=== PATIENT | female | born 1935 | race Two or more races ===

== ENCOUNTER 2018-02-02 17:15 | Emergency (ER) | payer MEDICARE ==
[~2018-02-02] VITALS: Ht 167.6 cm; Wt 76.2 kg
[~2018-02-02 17:15] MED LIST: TENORMIN 25MG T25 MG; Z.0.GLUCOPHAGE500 MG; Z.0.JANUVIA100 MG; Z.0.METHIMAZOLE10 MG; Z.0.NATEGLINIDE120 M
[2018-02-02] MEDS ORDERED: HYDROCODONE/APAP 5MG-325MG TAB PO ONE (18:30)
--- NOTE | 2018-02-02 18:42 | Diagnostic Imaging Report ---
SHOULDER LEFT COMPLETE - 3 views HISTORY: Pain. COMPARISON: None available. FINDINGS: Bones: No acute displaced fracture. Osseous alignment is within normal limits. Joints: Mild DJD of the glenohumeral joint. Soft tissues: The soft tissues appear unremarkable. IMPRESSION: Mild DJD of the glenohumeral joint. Signed by: Dr. Lexa Aiken M.D. on 02/02/2018 6:39 PM
== END 2018-02-02 19:36 | disposition home or self-care (01) ==
LOC: ER 17:15
DX: M25.512 Pain in left shoulder (principal); I10 Essential (primary) hypertension; E11.9 Type 2 diabetes mellitus without complications; E03.9 Hypothyroidism, unspecified
CPT/HCPCS: 99283

== ENCOUNTER 2019-06-07 21:52 | Emergency (ER) | payer MEDICARE ==
[~2019-06-07] VITALS: Ht 167.6 cm; Wt 73.0 kg
--- OUTSIDE RECORDS SUMMARY | 2019-06-07 21:57 | XMS REPORT ---
Author Author [facility] Address Unknown Phone Unavailable Care Team Providers Care Tectonophysicist Name Role Phone Russel NEGRETE Unavailable Unavailable Payers Payer Name Policy Type Policy Number Effective Date Expiration Date Problems This patient has no known problems. Allergies, Adverse Reactions, Alerts Allergy Name Allergy Type Status Severity Reaction(s) Onset Date Inactive Date Treating Clinician Comments No Known Allergies DA Active U 2019-02-13 00:00:00 Medications This patient has no known medications. Results Test Description Test Time Test Comments Text Results Atomic Results Result Comments GLUBED 2019-02-21 12:58:00 GLUBED (test code=GLUBED) 184 MG/DL 70-110 Performed by certified barrel rib matting machine operator at [facility] [id number] 06:43:00* Test Item Value Reference Range Comments GLUBED (test code=GLUBED) 135 MG/DL 70-110 Performed by certified barrel rib matting machine operator at [facility] [id number] 17:40:00* Test Item Value Reference Range Comments GLUBED (test code=GLUBED) 135 MG/DL 70-110 Performed by certified barrel rib matting machine operator at [facility] BASIC METABOLIC [id number] 15:18:00* Test Item Value Reference Range Comments SODIUM (test code=NA) 137 mEq/L 134-147 POTASSIUM (test code=K) 3.8 mEq/L 3.4-5.0 CHLORIDE (test code=CL) 100 mEq/L 100-108 CARBON DIOXIDE (test code=CO2) 32 mEq/L 21-33 ANION GAP (test code=GAP) 9 0-20 GLUCOSE (test code=GLU) 155 mg/dL 70-110 BLOOD UREA NITROGEN (test code=BUN) 13 mg/dL 7-18 GLOMERULAR FILTRATION RATE (test code=GFR) 68.8 70-80 Units of measure=ml/min/1.73 m2 CREATININE (test code=CREAT) 0.8 mg/dL 0.6-1.3 CALCIUM (test code=CA) 8.7 mg/dL 8.0-10.5 [id number] 13:02:00* Test Item Value Reference Range Comments GLUBED (test code=GLUBED) 321 MG/DL 70-110 Performed by certified barrel rib matting machine operator at [facility] CBC W/AUTO [id number] 07:52:00* Test Item Value Reference Range Comments WHITE BLOOD CELL (test code=WBC) 5.25 x10 3/uL 4.5-11.0 RED BLOOD CELL (test code=RBC) 3.77 x10 6/uL 3.54-5.02 HEMOGLOBIN (test code=HGB) 9.6 g/dL 11.0-15.0 HEMATOCRIT (test code=HCT) 30.6 % 33.0-45.0 MEAN CELL VOLUME (test code=MCV) 81.2 fL 81.0-99.0 MEAN CELL HGB (test code=MCH) 25.5 pg 27.0-33.0 MEAN CELL HGB CONCETRATION (test code=MCHC) 31.4 g/dL 33.0-37.0 RED CELL DISTRIBUTION WIDTH CV (test code=RDW) 14.8 % 11.5-14.5 RED CELL DISTRIBUTION WIDTH SD (test code=RDW-SD) 43.7 fL 37.0-54.0 PLATELET COUNT (test code=PLT) 274 x10 3/uL 150-400 MEAN PLATELET VOLUME (test code=MPV) 10.0 fL 7.0-9.0 NEUTROPHIL % (test code=NT%) 58.8 % 56.0-77.0 IMMATURE GRANULOCYTE % (test code=IG%) 0.4 % 0.0-2.0 LYMPHOCYTE % (test code=LY%) 28.0 % 14.0-32.0 MONOCYTE % (test code=MO%) 7.2 % 4.8-9.0 EOSINOPHIL % (test code=EO%) 5.0 % 0.3-3.7 BASOPHIL % (test code=BA%) 0.6 % 0.0-2.0 NUCLEATED RBC % (test code=NRBC%) 0.0 % 0-0 NEUTROPHIL # (test code=NT#) 3.09 x10 3/uL 2.0-7.6 IMMATURE GRANULOCYTE # (test code=IG#) 0.02 x10 3/uL 0.00-0.03 LYMPHOCYTE # (test code=LY#) 1.47 x10 3/uL 1.0-3.8 MONOCYTE # (test code=MO#) 0.38 x10 3/uL 0.1-0.8 EOSINOPHIL # (test code=EO#) 0.26 x10 3/uL 0.0-0.2 BASOPHIL # (test code=BA#) 0.03 x10 3/uL 0.0-0.2 NUCLEATED RBC # (test code=NRBC#) 0.00 x10 3/uL 0.0-0.1 MANUAL DIFF REQUIRED (test code=MDIFF) NO COMMENTS: Daily while on [id number] 06:09:00* Test Item Value Reference Range Comments GLUBED (test code=GLUBED) 145 MG/DL 70-110 Performed by certified barrel rib matting machine operator at [facility] [id number] 02:53:00* Test Item Value Reference Range Comments GLUBED (test code=GLUBED) 193 MG/DL 70-110 Performed by certified barrel rib matting machine operator at [facility] [id number] 18:50:00* Test Item Value Reference Range Comments GLUBED (test code=GLUBED) 104 MG/DL 70-110 Performed by certified barrel rib matting machine operator at [facility] [id number] 13:10:00* Test Item Value Reference Range Comments GLUBED (test code=GLUBED) 278 MG/DL 70-110 Performed by certified barrel rib matting machine operator at [facility] [id number] 06:24:00* Test Item Value Reference Range Comments GLUBED (test code=GLUBED) 139 MG/DL 70-110 Performed by certified barrel rib matting machine operator at [facility] [id number] 00:43:00* Test Item Value Reference Range Comments GLUBED (test code=GLUBED) 162 MG/DL 70-110 Performed by certified barrel rib matting machine operator at [facility] [id number] 18:30:00* Test Item Value Reference Range Comments GLUBED (test code=GLUBED) 131 MG/DL 70-110 Performed by certified barrel rib matting machine operator at [facility] [id number] 18:30:00* Test Item Value Reference Range Comments GLUBED (test code=GLUBED) 234 MG/DL 70-110 Performed by certified barrel rib matting machine operator at [facility] CBC W/AUTO [id number] 08:56:00* Test Item Value Reference Range Comments WHITE BLOOD CELL (test code=WBC) 6.98 x10 3/uL 4.5-11.0 RED BLOOD CELL (test code=RBC) 3.80 x10 6/uL 3.54-5.02 HEMOGLOBIN (test code=HGB) 9.6 g/dL 11.0-15.0 HEMATOCRIT (test code=HCT) 30.5 % 33.0-45.0 MEAN CELL VOLUME (test code=MCV) 80.3 fL 81.0-99.0 MEAN CELL HGB (test code=MCH) 25.3 pg 27.0-33.0 MEAN CELL HGB CONCETRATION (test code=MCHC) 31.5 g/dL 33.0-37.0 RED CELL DISTRIBUTION WIDTH CV (test code=RDW) 15.3 % 11.5-14.5 RED CELL DISTRIBUTION WIDTH SD (test code=RDW-SD) 44.2 fL 37.0-54.0 PLATELET COUNT (test code=PLT) 227 x10 3/uL 150-400 MEAN PLATELET VOLUME (test code=MPV) 10.9 fL 7.0-9.0 NEUTROPHIL % (test code=NT%) 76.4 % 56.0-77.0 IMMATURE GRANULOCYTE % (test code=IG%) 0.3 % 0.0-2.0 LYMPHOCYTE % (test code=LY%) 14.6 % 14.0-32.0 MONOCYTE % (test code=MO%) 6.7 % 4.8-9.0 EOSINOPHIL % (test code=EO%) 1.6 % 0.3-3.7 BASOPHIL % (test code=BA%) 0.4 % 0.0-2.0 NUCLEATED RBC % (test code=NRBC%) 0.0 % 0-0 NEUTROPHIL # (test code=NT#) 5.33 x10 3/uL 2.0-7.6 IMMATURE GRANULOCYTE # (test code=IG#) 0.02 x10 3/uL 0.00-0.03 LYMPHOCYTE # (test code=LY#) 1.02 x10 3/uL 1.0-3.8 MONOCYTE # (test code=MO#) 0.47 x10 3/uL 0.1-0.8 EOSINOPHIL # (test code=EO#) 0.11 x10 3/uL 0.0-0.2 BASOPHIL # (test code=BA#) 0.03 x10 3/uL 0.0-0.2 NUCLEATED RBC # (test code=NRBC#) 0.00 x10 3/uL 0.0-0.1 MANUAL DIFF REQUIRED (test code=MDIFF) NO COMMENTS: Daily while on HeparinCOMPREHENSIVE METABOLIC [id number] 08:25:00 * Test Item Value Reference Range Comments SODIUM (test code=NA) 138 mEq/L 134-147 POTASSIUM (test code=K) 3.5 mEq/L 3.4-5.0 CHLORIDE (test code=CL) 106 mEq/L 100-108 CARBON DIOXIDE (test code=CO2) 25 mEq/L 21-33 ANION GAP (test code=GAP) 11 0-20 GLUCOSE (test code=GLU) 126 mg/dL 70-110 BLOOD UREA NITROGEN (test code=BUN) 16 mg/dL 7-18 GLOMERULAR FILTRATION RATE (test code=GFR) 80.3 70-80 Units of measure=ml/min/1.73 m2 CREATININE (test code=CREAT) 0.7 mg/dL 0.6-1.3 TOTAL PROTEIN (test code=PROT) 6.0 g/dL 6.4-8.2 ALBUMIN (test code=ALB) 2.50 g/dL 3.4-5.0 CALCIUM (test code=CA) 8.7 mg/dL 8.0-10.5 BILIRUBIN TOTAL (test code=BILT) 0.7 MG/DL <1.5 SGOT/AST (test code=AST) 10 IUnit/L 15-37 SGPT/ALT (test code=ALT) 17 IUnit/L 15-65 ALKALINE PHOSPHATASE TOTAL (test code=ALKP) 66 IUnit/L 20-125 [id number] 08:25:00* Test Item Value Reference Range Comments PHOSPHOROUS (test code=PHOS) 3.1 MG/DL 2.5-4.9 [id number] 08:25:00* Test Item Value Reference Range Comments MAGNESIUM (test code=MAG) 1.90 mg/dL 1.8-2.4 [id number] 05:54:00* Test Item Value Reference Range Comments GLUBED (test code=GLUBED) 141 MG/DL 70-110 Performed by certified barrel rib matting machine operator at [facility] [id number] 02:58:00* Test Item Value Reference Range Comments GLUBED (test code=GLUBED) 106 MG/DL 70-110 Performed by certified barrel rib matting machine operator at [facility] [id number] 18:49:00* Test Item Value Reference Range Comments GLUBED (test code=GLUBED) 202 MG/DL 70-110 Performed by certified barrel rib matting machine operator at [facility] BASIC METABOLIC [id number] 17:13:00* Test Item Value Reference Range Comments SODIUM (test code=NA) 136 mEq/L 134-147 POTASSIUM (test code=K) 3.4 mEq/L 3.4-5.0 CHLORIDE (test code=CL) 104 mEq/L 100-108 CARBON DIOXIDE (test code=CO2) 25 mEq/L 21-33 ANION GAP (test code=GAP) 10 0-20 GLUCOSE (test code=GLU) 223 mg/dL 70-110 BLOOD UREA NITROGEN (test code=BUN) 20 mg/dL 7-18 GLOMERULAR FILTRATION RATE (test code=GFR) 53.2 70-80 Units of measure=ml/min/1.73 m2 CREATININE (test code=CREAT) 1.0 mg/dL 0.6-1.3 CALCIUM (test code=CA) 8.7 mg/dL 8.0-10.5 [id number] 17:13:00* Test Item Value Reference Range Comments PHOSPHOROUS (test code=PHOS) 3.1 MG/DL 2.5-4.9 [id number] 17:13:00* Test Item Value Reference Range Comments MAGNESIUM (test code=MAG) 1.90 mg/dL 1.8-2.4 BASIC METABOLIC [id number] 17:12:00* Test Item Value Reference Range Comments SODIUM (test code=NA) 136 mEq/L 134-147 POTASSIUM (test code=K) 3.4 mEq/L 3.4-5.0 CHLORIDE (test code=CL) 104 mEq/L 100-108 CARBON DIOXIDE (test code=CO2) 25 mEq/L 21-33 ANION GAP (test code=GAP) 10 0-20 GLUCOSE (test code=GLU) 223 mg/dL 70-110 BLOOD UREA NITROGEN (test code=BUN) 20 mg/dL 7-18 GLOMERULAR FILTRATION RATE (test code=GFR) 70-80 CREATININE (test code=CREAT) mg/dL 0.6-1.3 CALCIUM (test code=CA) 8.7 mg/dL 8.0-10.5 [id number] 17:12:00* Test Item Value Reference Range Comments PHOSPHOROUS (test code=PHOS) MG/DL 2.5-4.9 [id number] 17:12:00* Test Item Value Reference Range Comments MAGNESIUM (test code=MAG) 1.90 mg/dL 1.8-2.4 [id number] 17:06:00* Test Item Value Reference Range Comments GLUBED (test code=GLUBED) 140 MG/DL 70-110 Performed by certified barrel rib matting machine operator at [facility] [id number] 16:34:00* Test Item Value Reference Range Comments GLUBED (test code=GLUBED) 140 MG/DL 70-110 Performed by certified barrel rib matting machine operator at [facility] [id number] 13:13:00* Test Item Value Reference Range Comments GLUBED (test code=GLUBED) 140 MG/DL 70-110 Performed by certified barrel rib matting machine operator at [facility] COMPREHENSIVE METABOLIC [id number] 07:35:00* Test Item Value Reference Range Comments SODIUM (test code=NA) 138 mEq/L 134-147 POTASSIUM (test code=K) 3.5 mEq/L 3.4-5.0 CHLORIDE (test code=CL) 106 mEq/L 100-108 CARBON DIOXIDE (test code=CO2) 25 mEq/L 21-33 ANION GAP (test code=GAP) 11 0-20 GLUCOSE (test code=GLU) 186 mg/dL 70-110 BLOOD UREA NITROGEN (test code=BUN) 20 mg/dL 7-18 GLOMERULAR FILTRATION RATE (test code=GFR) 60.1 70-80 Units of measure=ml/min/1.73 m2 CREATININE (test code=CREAT) 0.9 mg/dL 0.6-1.3 TOTAL PROTEIN (test code=PROT) 5.6 g/dL 6.4-8.2 ALBUMIN (test code=ALB) 2.30 g/dL 3.4-5.0 CALCIUM (test code=CA) 8.2 mg/dL 8.0-10.5 BILIRUBIN TOTAL (test code=BILT) 0.4 MG/DL <1.5 SGOT/AST (test code=AST) 6 IUnit/L 15-37 SGPT/ALT (test code=ALT) 15 IUnit/L 15-65 ALKALINE PHOSPHATASE TOTAL (test code=ALKP) 60 IUnit/L 20-125 [id number] 07:35:00* Test Item Value Reference Range Comments PHOSPHOROUS (test code=PHOS) 3.0 MG/DL 2.5-4.9 [id number] 07:35:00* Test Item Value Reference Range Comments MAGNESIUM (test code=MAG) 2.10 mg/dL 1.8-2.4 T4 [id number] 07:35:00* Test Item Value Reference Range Comments T4 FREE (test code=T4F) 1.6 ng/dL 0.77-1.61 THYROID STIMULATING [id number] 07:35:00* Test Item Value Reference Range Comments THYROID STIMULATING HORMONE (test code=TSH) < 0.01 0.42-5.47 Results in raysa- International Units/mL COMPREHENSIVE METABOLIC [id number] 07:13:00* Test Item Value Reference Range Comments SODIUM (test code=NA) 138 mEq/L 134-147 POTASSIUM (test code=K) 3.5 mEq/L 3.4-5.0 CHLORIDE (test code=CL) 106 mEq/L 100-108 CARBON DIOXIDE (test code=CO2) 25 mEq/L 21-33 ANION GAP (test code=GAP) 11 0-20 GLUCOSE (test code=GLU) 186 mg/dL 70-110 BLOOD UREA NITROGEN (test code=BUN) 20 mg/dL 7-18 GLOMERULAR FILTRATION RATE (test code=GFR) 60.1 70-80 Units of measure=ml/min/1.73 m2 CREATININE (test code=CREAT) 0.9 mg/dL 0.6-1.3 TOTAL PROTEIN (test code=PROT) 5.6 g/dL 6.4-8.2 ALBUMIN (test code=ALB) 2.30 g/dL 3.4-5.0 CALCIUM (test code=CA) 8.2 mg/dL 8.0-10.5 BILIRUBIN TOTAL (test code=BILT) 0.4 MG/DL <1.5 SGOT/AST (test code=AST) 6 IUnit/L 15-37 SGPT/ALT (test code=ALT) 15 IUnit/L 15-65 ALKALINE PHOSPHATASE TOTAL (test code=ALKP) 60 IUnit/L 20-125 [id number] 07:13:00* Test Item Value Reference Range Comments PHOSPHOROUS (test code=PHOS) 3.0 MG/DL 2.5-4.9 [id number] 07:13:00* Test Item Value Reference Range Comments MAGNESIUM (test code=MAG) 2.10 mg/dL 1.8-2.4 T4 [id number] 07:13:00* Test Item Value Reference Range Comments T4 FREE (test code=T4F) 1.6 ng/dL 0.77-1.61 THYROID STIMULATING [id number] 07:13:00* Test Item Value Reference Range Comments THYROID STIMULATING HORMONE (test code=TSH) 0.42-5.47 [id number] 07:11:00* Test Item Value Reference Range Comments GLUBED (test code=GLUBED) 174 MG/DL 70-110 Performed by certified barrel rib matting machine operator at [facility] COMPREHENSIVE METABOLIC [id number] 07:05:00* Test Item Value Reference Range Comments SODIUM (test code=NA) 138 mEq/L 134-147 POTASSIUM (test code=K) 3.5 mEq/L 3.4-5.0 CHLORIDE (test code=CL) 106 mEq/L 100-108 CARBON DIOXIDE (test code=CO2) 25 mEq/L 21-33 ANION GAP (test code=GAP) 11 0-20 GLUCOSE (test code=GLU) 186 mg/dL 70-110 BLOOD UREA NITROGEN (test code=BUN) 20 mg/dL 7-18 GLOMERULAR FILTRATION RATE (test code=GFR) 70-80 CREATININE (test code=CREAT) mg/dL 0.6-1.3 TOTAL PROTEIN (test code=PROT) g/dL 6.4-8.2 ALBUMIN (test code=ALB) g/dL 3.4-5.0 CALCIUM (test code=CA) 8.2 mg/dL 8.0-10.5 BILIRUBIN TOTAL (test code=BILT) MG/DL <1.5 SGOT/AST (test code=AST) IUnit/L 15-37 SGPT/ALT (test code=ALT) IUnit/L 15-65 ALKALINE PHOSPHATASE TOTAL (test code=ALKP) IUnit/L 20-125 [id number] 07:05:00* Test Item Value Reference Range Comments PHOSPHOROUS (test code=PHOS) MG/DL 2.5-4.9 [id number] 07:05:00* Test Item Value Reference Range Comments MAGNESIUM (test code=MAG) mg/dL 1.8-2.4 T4 [id number] 07:05:00* Test Item Value Reference Range Comments T4 FREE (test code=T4F) ng/dL 0.77-1.61 THYROID STIMULATING [id number] 07:05:00* Test Item Value Reference Range Comments THYROID STIMULATING HORMONE (test code=TSH) 0.42-5.47 CBC W/AUTO [id number] 06:39:00* Test Item Value Reference Range Comments WHITE BLOOD CELL (test code=WBC) 7.11 x10 3/uL 4.5-11.0 RED BLOOD CELL (test code=RBC) 3.47 x10 6/uL 3.54-5.02 HEMOGLOBIN (test code=HGB) 9.0 g/dL 11.0-15.0 HEMATOCRIT (test code=HCT) 27.6 % 33.0-45.0 MEAN CELL VOLUME (test code=MCV) 79.5 fL 81.0-99.0 MEAN CELL HGB (test code=MCH) 25.9 pg 27.0-33.0 MEAN CELL HGB CONCETRATION (test code=MCHC) 32.6 g/dL 33.0-37.0 RED CELL DISTRIBUTION WIDTH CV (test code=RDW) 15.4 % 11.5-14.5 RED CELL DISTRIBUTION WIDTH SD (test code=RDW-SD) 44.9 fL 37.0-54.0 PLATELET COUNT (test code=PLT) 188 x10 3/uL 150-400 MEAN PLATELET VOLUME (test code=MPV) 11.1 fL 7.0-9.0 NEUTROPHIL % (test code=NT%) 84.9 % 56.0-77.0 IMMATURE GRANULOCYTE % (test code=IG%) 0.7 % 0.0-2.0 LYMPHOCYTE % (test code=LY%) 8.2 % 14.0-32.0 MONOCYTE % (test code=MO%) 5.8 % 4.8-9.0 EOSINOPHIL % (test code=EO%) 0.1 % 0.3-3.7 BASOPHIL % (test code=BA%) 0.3 % 0.0-2.0 NUCLEATED RBC % (test code=NRBC%) 0.0 % 0-0 NEUTROPHIL # (test code=NT#) 6.04 x10 3/uL 2.0-7.6 IMMATURE GRANULOCYTE # (test code=IG#) 0.05 x10 3/uL 0.00-0.03 LYMPHOCYTE # (test code=LY#) 0.58 x10 3/uL 1.0-3.8 MONOCYTE # (test code=MO#) 0.41 x10 3/uL 0.1-0.8 EOSINOPHIL # (test code=EO#) 0.01 x10 3/uL 0.0-0.2 BASOPHIL # (test code=BA#) 0.02 x10 3/uL 0.0-0.2 NUCLEATED RBC # (test code=NRBC#) 0.00 x10 3/uL 0.0-0.1 MANUAL DIFF REQUIRED (test code=MDIFF) NO COMMENTS: Daily while on HeparinARTERIAL BLOOD [id number] 02:53:00* Test Item Value Reference Range Comments ARTERIAL BLOOD GAS PH (test code=PHA) 7.449 7.35-7.45 ARTERIAL BLOOD GAS PCO2 (test code=PCO2A) 29.6 mmHg 35-45 ARTERIAL BLOOD GAS PO2 (test code=PO2A) 86 mmHg 80-100 BICARBONATE TOTAL HCO3 (test code=HCO3) 20.5 mmol/L 22.0-26.0 BASE EXCESS (test code=MARY) -4.0 mmol/L -4-4 ABG O2 SATURATION (test code=SATA) 97 % 90-100 ABG DELIVERY (test code=NATIVIDAD) Cannula ABG TEMPERATURE (test code=TEMPA) 98.7 F ABG SITE (test code=SITEA) Art line TCO2 ARTERIAL (test code=TCO2A) 21 [id number] 00:13:00* Test Item Value Reference Range Comments GLUBED (test code=GLUBED) 168 MG/DL 70-110 Performed by certified barrel rib matting machine operator at [facility] [id number] 18:08:00* Test Item Value Reference Range Comments GLUBED (test code=GLUBED) 143 MG/DL 70-110 Performed by certified barrel rib matting machine operator at [facility] [id number] 11:16:00* Test Item Value Reference Range Comments GLUBED (test code=GLUBED) 174 MG/DL 70-110 Performed by certified barrel rib matting machine operator at [facility] - XR CHEST 1 [id number] 08:32:00 FAX: Hieu Poole MD [place]: St: ADM FAX: Ai Berger MD [phone] FAX: Irma Smith [phone] Name: SUMMER RUBI [facility] : 1935 Age/S: 83/F [address] [place] [address] Unit #: [id number] Loc: G.M324 [place] [address] Phys: Hieu Poole MD Acct: [id number] Dis Date: Status: ADM IN PH ONE #: [phone] Exam Date: 02/16/2019 0548 FAX #: [phone] Reason: pulmonary edema EXAMS: CPT CODE: [id number] XR CHEST 1 V [id number] CHEST 1 VIEW: 02/16/2019 COMPARISON: February 15, 2019 CLINICAL HI STORY: pulmonary edema FINDINGS: Cardiomediastinal silhouette is s table in size. Endotracheal tube and NG tube are relatively unchanged. There is persistent pulmonary edema pattern with bilateral infiltrat es and bilateral pleural effusions. Findings appear stable. No evidence of pneumothorax. IMPRESSION: Per sistent pulmonary edema, without significant change. at 0832 Report ed and signed by: Darinel Acevedo M.D. CC: Hieu Poole MD; Aly Ryan; Irma Davis MD Technologist: RT Nik(R) Trnscrd Date/Time/By: 02/16/2019 (0832) : By: [email or web address] Orig Print D/T: S: 02/16/2019 (0847) PAGE 1 Signed Report [id number] 06:48:00* Test Item Value Reference Range Comments GLUBED (test code=GLUBED) 131 MG/DL 70-110 Performed by certified barrel rib matting machine operator at [facility] THROMBOPLASTIN TIME [id number] 05:44:00* Test Item Value Reference Range Comments THROMBOPLASTIN TIME PARTIAL (test code=PTT) 43.7 Seconds 25.0-39.5 Therapeutic Range: 50.4 - 88.3 Seconds Effective 06/14/2018 COMPREHENSIVE METABOLIC [id number] 05:38:00* Test Item Value Reference Range Comments SODIUM (test code=NA) 136 mEq/L 134-147 POTASSIUM (test code=K) 3.3 mEq/L 3.4-5.0 CHLORIDE (test code=CL) 106 mEq/L 100-108 CARBON DIOXIDE (test code=CO2) 22 mEq/L 21-33 ANION GAP (test code=GAP) 11 0-20 GLUCOSE (test code=GLU) 118 mg/dL 70-110 BLOOD UREA NITROGEN (test code=BUN) 17 mg/dL 7-18 GLOMERULAR FILTRATION RATE (test code=GFR) 60.1 70-80 Units of measure=ml/min/1.73 m2 CREATININE (test code=CREAT) 0.9 mg/dL 0.6-1.3 TOTAL PROTEIN (test code=PROT) 5.4 g/dL 6.4-8.2 ALBUMIN (test code=ALB) 2.50 g/dL 3.4-5.0 CALCIUM (test code=CA) 8.0 mg/dL 8.0-10.5 BILIRUBIN TOTAL (test code=BILT) 0.3 MG/DL <1.5 SGOT/AST (test code=AST) 5 IUnit/L 15-37 SGPT/ALT (test code=ALT) 21 IUnit/L 15-65 ALKALINE PHOSPHATASE TOTAL (test code=ALKP) 60 IUnit/L 20-125 [id number] 05:38:00* Test Item Value Reference Range Comments PHOSPHOROUS (test code=PHOS) 3.1 MG/DL 2.5-4.9 [id number] 05:38:00* Test Item Value Reference Range Comments MAGNESIUM (test code=MAG) 2.00 mg/dL 1.8-2.4 CALCIUM [id number] 05:27:00* Test Item Value Reference Range Comments CALCIUM IONIZED (test code=HEBERT) 1.13 MMOL/L 1.12-1.32 CBC W/AUTO [id number] 05:26:00* Test Item Value Reference Range Comments WHITE BLOOD CELL (test code=WBC) 8.28 x10 3/uL 4.5-11.0 RED BLOOD CELL (test code=RBC) 3.60 x10 6/uL 3.54-5.02 HEMOGLOBIN (test code=HGB) 9.2 g/dL 11.0-15.0 HEMATOCRIT (test code=HCT) 28.4 % 33.0-45.0 MEAN CELL VOLUME (test code=MCV) 78.9 fL 81.0-99.0 MEAN CELL HGB (test code=MCH) 25.6 pg 27.0-33.0 MEAN CELL HGB CONCETRATION (test code=MCHC) 32.4 g/dL 33.0-37.0 RED CELL DISTRIBUTION WIDTH CV (test code=RDW) 15.3 % 11.5-14.5 RED CELL DISTRIBUTION WIDTH SD (test code=RDW-SD) 43.8 fL 37.0-54.0 PLATELET COUNT (test code=PLT) 183 x10 3/uL 150-400 MEAN PLATELET VOLUME (test code=MPV) 10.9 fL 7.0-9.0 NEUTROPHIL % (test code=NT%) 81.2 % 56.0-77.0 IMMATURE GRANULOCYTE % (test code=IG%) 0.5 % 0.0-2.0 LYMPHOCYTE % (test code=LY%) 11.0 % 14.0-32.0 MONOCYTE % (test code=MO%) 7.2 % 4.8-9.0 EOSINOPHIL % (test code=EO%) 0.0 % 0.3-3.7 BASOPHIL % (test code=BA%) 0.1 % 0.0-2.0 NUCLEATED RBC % (test code=NRBC%) 0.0 % 0-0 NEUTROPHIL # (test code=NT#) 6.72 x10 3/uL 2.0-7.6 IMMATURE GRANULOCYTE # (test code=IG#) 0.04 x10 3/uL 0.00-0.03 LYMPHOCYTE # (test code=LY#) 0.91 x10 3/uL 1.0-3.8 MONOCYTE # (test code=MO#) 0.60 x10 3/uL 0.1-0.8 EOSINOPHIL # (test code=EO#) 0.00 x10 3/uL 0.0-0.2 BASOPHIL # (test code=BA#) 0.01 x10 3/uL 0.0-0.2 NUCLEATED RBC # (test code=NRBC#) 0.00 x10 3/uL 0.0-0.1 MANUAL DIFF REQUIRED (test code=MDIFF) NO COMMENTS: Daily while on [id number] 04:42:00* Test Item Value Reference Range Comments GLUBED (test code=GLUBED) 112 MG/DL 70-110 Performed by certified barrel rib matting machine operator at [facility] ARTERIAL BLOOD [id number] 04:16:00* Test Item Value Reference Range Comments ARTERIAL BLOOD GAS PH (test code=PHA) 7.445 7.35-7.45 ARTERIAL BLOOD GAS PCO2 (test code=PCO2A) 27.9 mmHg 35-45 ARTERIAL BLOOD GAS PO2 (test code=PO2A) 66 mmHg 80-100 BICARBONATE TOTAL HCO3 (test code=HCO3) 19.1 mmol/L 22.0-26.0 BASE EXCESS (test code=MARY) -5.0 mmol/L -4-4 ABG O2 SATURATION (test code=SATA) 94 % 90-100 ABG DELIVERY (test code=NATIVIDAD) Vent Performed by certified barrel rib matting machine operator at [facility] ABG TEMPERATURE (test code=TEMPA) 99.29 F ABG SITE (test code=SITEA) Art line TCO2 ARTERIAL (test code=TCO2A) 20 [id number] 03:23:00* Test Item Value Reference Range Comments GLUBED (test code=GLUBED) 84 MG/DL 70-110 Performed by certified barrel rib matting machine operator at [facility] [id number] 01:05:00* Test Item Value Reference Range Comments GLUBED (test code=GLUBED) 116 MG/DL 70-110 Performed by certified barrel rib matting machine operator at [facility] [id number] 23:02:00* Test Item Value Reference Range Comments GLUBED (test code=GLUBED) 141 MG/DL 70-110 Performed by certified barrel rib matting machine operator at [facility] THROMBOPLASTIN TIME [id number] 22:41:00* Test Item Value Reference Range Comments THROMBOPLASTIN TIME PARTIAL (test code=PTT) 58.7 Seconds 25.0-39.5 Therapeutic Range: 50.4 - 88.3 Seconds Effective 06/14/2018 [id number] 20:49:00* Test Item Value Reference Range Comments GLUBED (test code=GLUBED) 138 MG/DL 70-110 Performed by certified barrel rib matting machine operator at [facility] [id number] 18:41:00* Test Item Value Reference Range Comments GLUBED (test code=GLUBED) 152 MG/DL 70-110 Performed by certified barrel rib matting machine operator at [facility] THROMBOPLASTIN TIME [id number] 16:50:00* Test Item Value Reference Range Comments THROMBOPLASTIN TIME PARTIAL (test code=PTT) 72.9 Seconds 25.0-39.5 Therapeutic Range: 50.4 - 88.3 Seconds Effective 06/14/2018 [id number] 15:40:00* Test Item Value Reference Range Comments GLUBED (test code=GLUBED) 132 MG/DL 70-110 Performed by certified barrel rib matting machine operator at [facility] [id number] 13:14:00* Test Item Value Reference Range Comments GLUBED (test code=GLUBED) 156 MG/DL 70-110 Performed by certified barrel rib matting machine operator at [facility] [id number] 10:48:00* Test Item Value Reference Range Comments GLUBED (test code=GLUBED) 149 MG/DL 70-110 Performed by certified barrel rib matting machine operator at [facility] [id number] 08:33:00* Test Item Value Reference Range Comments GLUBED (test code=GLUBED) 157 MG/DL 70-110 Performed by certified barrel rib matting machine operator at [facility] - XR CHEST 1 [id number] 08:21:00 FAX: Hieu Poole MD [place]: St: ADM FAX: Ai Berger MD [phone] FAX: Irma Smith [phone] Name: SUMMER RUBI [facility] : 1935 Age/S: 83/F [address] [place] [address] Unit #: [id number] Loc: G.M324 [place] [address] Phys: Hieu Poole MD Acct: [id number] Dis Date: Status: ADM IN PH ONE #: [phone] Exam Date: 02/15/2019 0544 FAX #: [phone] Reason: pulmonary edema, ETT placement EXAMS: CPT CODE: [id number] XR CHEST 1 V 49095 Clinical Indic ation: Pulmonary edema, endotracheal tube placement. Comparison: 9. Impression: Chest, single view. Stable position of endotrach eal tube. New NG tube with tip and sidehole coiled over the expected lo cation of the stomach. Cardiomegaly with retrocardiac opacification concerning for pneumonia. Small to moderate layering right pleural effusion with overlying atelectatic change. Small left pleural effusio n. No pneumothorax. SL: [id number] at 0821 Reported and signed by: Chen Del Rosario M.D. CC: Hieu Poole MD; Ai Motta; Irma Davis MD Technologist: RT Nik(Edin) Trnscrd Date/Time/By: 02/15/2019 (820) : By: [email or web address] Orig Print D/T: S: 02/15/2019 (8008) PAGE 1 Signed Report THROMBOPLASTIN TIME [id number] 05:50:00* Test Item Value Reference Range Comments THROMBOPLASTIN TIME PARTIAL (test code=PTT) 36.7 Seconds 25.0-39.5 Therapeutic Range: 50.4 - 88.3 Seconds Effective 06/14/2018 [id number] 05:46:00* Test Item Value Reference Range Comments GLUBED (test code=GLUBED) 132 MG/DL 70-110 Performed by certified barrel rib matting machine operator at [facility] COMPREHENSIVE METABOLIC [id number] 05:41:00* Test Item Value Reference Range Comments SODIUM (test code=NA) 137 mEq/L 134-147 POTASSIUM (test code=K) 3.2 mEq/L 3.4-5.0 CHLORIDE (test code=CL) 105 mEq/L 100-108 CARBON DIOXIDE (test code=CO2) 24 mEq/L 21-33 ANION GAP (test code=GAP) 11 0-20 GLUCOSE (test code=GLU) 116 mg/dL 70-110 BLOOD UREA NITROGEN (test code=BUN) 15 mg/dL 7-18 GLOMERULAR FILTRATION RATE (test code=GFR) 53.2 70-80 Units of measure=ml/min/1.73 m2 CREATININE (test code=CREAT) 1.0 mg/dL 0.6-1.3 TOTAL PROTEIN (test code=PROT) 5.4 g/dL 6.4-8.2 ALBUMIN (test code=ALB) 2.60 g/dL 3.4-5.0 CALCIUM (test code=CA) 7.8 mg/dL 8.0-10.5 BILIRUBIN TOTAL (test code=BILT) 0.2 MG/DL <1.5 SGOT/AST (test code=AST) 9 IUnit/L 15-37 SGPT/ALT (test code=ALT) 28 IUnit/L 15-65 ALKALINE PHOSPHATASE TOTAL (test code=ALKP) 65 IUnit/L 20-125 [id number] 05:41:00* Test Item Value Reference Range Comments PHOSPHOROUS (test code=PHOS) 2.9 MG/DL 2.5-4.9 [id number] 05:41:00* Test Item Value Reference Range Comments MAGNESIUM (test code=MAG) 1.50 mg/dL 1.8-2.4 CALCIUM [id number] 05:41:00* Test Item Value Reference Range Comments CALCIUM IONIZED (test code=HEBERT) 1.12 MMOL/L 1.12-1.32 COMPREHENSIVE METABOLIC [id number] 05:37:00* Test Item Value Reference Range Comments SODIUM (test code=NA) 137 mEq/L 134-147 POTASSIUM (test code=K) 3.2 mEq/L 3.4-5.0 CHLORIDE (test code=CL) 105 mEq/L 100-108 CARBON DIOXIDE (test code=CO2) 24 mEq/L 21-33 ANION GAP (test code=GAP) 11 0-20 GLUCOSE (test code=GLU) 116 mg/dL 70-110 BLOOD UREA NITROGEN (test code=BUN) 15 mg/dL 7-18 GLOMERULAR FILTRATION RATE (test code=GFR) 70-80 CREATININE (test code=CREAT) mg/dL 0.6-1.3 TOTAL PROTEIN (test code=PROT) g/dL 6.4-8.2 ALBUMIN (test code=ALB) g/dL 3.4-5.0 CALCIUM (test code=CA) 7.8 mg/dL 8.0-10.5 BILIRUBIN TOTAL (test code=BILT) MG/DL <1.5 SGOT/AST (test code=AST) IUnit/L 15-37 SGPT/ALT (test code=ALT) IUnit/L 15-65 ALKALINE PHOSPHATASE TOTAL (test code=ALKP) IUnit/L 20-125 [id number] 05:37:00* Test Item Value Reference Range Comments PHOSPHOROUS (test code=PHOS) MG/DL 2.5-4.9 [id number] 05:37:00* Test Item Value Reference Range Comments MAGNESIUM (test code=MAG) mg/dL 1.8-2.4 CALCIUM [id number] 05:37:00* Test Item Value Reference Range Comments CALCIUM IONIZED (test code=HEBERT) 1.12 MMOL/L 1.12-1.32 COMPREHENSIVE METABOLIC [id number] 05:28:00* Test Item Value Reference Range Comments SODIUM (test code=NA) mEq/L 134-147 POTASSIUM (test code=K) mEq/L 3.4-5.0 CHLORIDE (test code=CL) mEq/L 100-108 CARBON DIOXIDE (test code=CO2) mEq/L 21-33 ANION GAP (test code=GAP) 0-20 GLUCOSE (test code=GLU) mg/dL 70-110 BLOOD UREA NITROGEN (test code=BUN) mg/dL 7-18 GLOMERULAR FILTRATION RATE (test code=GFR) 70-80 CREATININE (test code=CREAT) mg/dL 0.6-1.3 TOTAL PROTEIN (test code=PROT) g/dL 6.4-8.2 ALBUMIN (test code=ALB) g/dL 3.4-5.0 CALCIUM (test code=CA) mg/dL 8.0-10.5 BILIRUBIN TOTAL (test code=BILT) MG/DL <1.5 SGOT/AST (test code=AST) IUnit/L 15-37 SGPT/ALT (test code=ALT) IUnit/L 15-65 ALKALINE PHOSPHATASE TOTAL (test code=ALKP) IUnit/L 20-125 [id number] 05:28:00* Test Item Value Reference Range Comments PHOSPHOROUS (test code=PHOS) MG/DL 2.5-4.9 [id number] 05:28:00* Test Item Value Reference Range Comments MAGNESIUM (test code=MAG) mg/dL 1.8-2.4 CALCIUM [id number] 05:28:00* Test Item Value Reference Range Comments CALCIUM IONIZED (test code=HEBERT) 1.12 MMOL/L 1.12-1.32 CBC W/AUTO [id number] 05:20:00* Test Item Value Reference Range Comments WHITE BLOOD CELL (test code=WBC) 8.29 x10 3/uL 4.5-11.0 RED BLOOD CELL (test code=RBC) 3.82 x10 6/uL 3.54-5.02 HEMOGLOBIN (test code=HGB) 9.7 g/dL 11.0-15.0 HEMATOCRIT (test code=HCT) 30.1 % 33.0-45.0 MEAN CELL VOLUME (test code=MCV) 78.8 fL 81.0-99.0 MEAN CELL HGB (test code=MCH) 25.4 pg 27.0-33.0 MEAN CELL HGB CONCETRATION (test code=MCHC) 32.2 g/dL 33.0-37.0 RED CELL DISTRIBUTION WIDTH CV (test code=RDW) 14.6 % 11.5-14.5 RED CELL DISTRIBUTION WIDTH SD (test code=RDW-SD) 42.0 fL 37.0-54.0 PLATELET COUNT (test code=PLT) 195 x10 3/uL 150-400 MEAN PLATELET VOLUME (test code=MPV) 11.1 fL 7.0-9.0 NEUTROPHIL % (test code=NT%) 77.5 % 56.0-77.0 IMMATURE GRANULOCYTE % (test code=IG%) 0.4 % 0.0-2.0 LYMPHOCYTE % (test code=LY%) 13.4 % 14.0-32.0 MONOCYTE % (test code=MO%) 8.2 % 4.8-9.0 EOSINOPHIL % (test code=EO%) 0.4 % 0.3-3.7 BASOPHIL % (test code=BA%) 0.1 % 0.0-2.0 NUCLEATED RBC % (test code=NRBC%) 0.0 % 0-0 NEUTROPHIL # (test code=NT#) 6.43 x10 3/uL 2.0-7.6 IMMATURE GRANULOCYTE # (test code=IG#) 0.03 x10 3/uL 0.00-0.03 LYMPHOCYTE # (test code=LY#) 1.11 x10 3/uL 1.0-3.8 MONOCYTE # (test code=MO#) 0.68 x10 3/uL 0.1-0.8 EOSINOPHIL # (test code=EO#) 0.03 x10 3/uL 0.0-0.2 BASOPHIL # (test code=BA#) 0.01 x10 3/uL 0.0-0.2 NUCLEATED RBC # (test code=NRBC#) 0.00 x10 3/uL 0.0-0.1 MANUAL DIFF REQUIRED (test code=MDIFF) NO [id number] 04:53:00* Test Item Value Reference Range Comments GLUBED (test code=GLUBED) 135 MG/DL 70-110 Performed by certified barrel rib matting machine operator at [facility] [id number] 04:53:00* Test Item Value Reference Range Comments GLUBED (test code=GLUBED) 66 MG/DL 70-110 Performed by certified barrel rib matting machine operator at [facility] [id number] 03:47:00* Test Item Value Reference Range Comments GLUBED (test code=GLUBED) 131 MG/DL 70-110 Performed by certified barrel rib matting machine operator at [facility] [id number] 01:24:00* Test Item Value Reference Range Comments GLUBED (test code=GLUBED) 130 MG/DL 70-110 Performed by certified barrel rib matting machine operator at [facility] [id number] 00:16:00* Test Item Value Reference Range Comments GLUBED (test code=GLUBED) 219 MG/DL 70-110 Performed by certified barrel rib matting machine operator at [facility] [id number] 00:16:00* Test Item Value Reference Range Comments GLUBED (test code=GLUBED) 303 MG/DL 70-110 Performed by certified barrel rib matting machine operator at [facility] [id number] 00:16:00* Test Item Value Reference Range Comments GLUBED (test code=GLUBED) 321 MG/DL 70-110 Performed by certified barrel rib matting machine operator at [facility] [id number] 00:16:00* Test Item Value Reference Range Comments GLUBED (test code=GLUBED) 355 MG/DL 70-110 Performed by certified barrel rib matting machine operator at [facility] [id number] 00:16:00* Test Item Value Reference Range Comments GLUBED (test code=GLUBED) 381 MG/DL 70-110 Performed by certified barrel rib matting machine operator at [facility] [id number] 00:16:00* Test Item Value Reference Range Comments GLUBED (test code=GLUBED) 415 MG/DL 70-110 Performed by certified barrel rib matting machine operator at [facility] ARTERIAL BLOOD [id number] 23:48:00* Test Item Value Reference Range Comments ARTERIAL BLOOD GAS PH (test code=PHA) 7.442 7.35-7.45 ARTERIAL BLOOD GAS PCO2 (test code=PCO2A) 40.7 mmHg 35-45 ARTERIAL BLOOD GAS PO2 (test code=PO2A) 352 mmHg 80-100 BICARBONATE TOTAL HCO3 (test code=HCO3) 27.8 mmol/L 22.0-26.0 BASE EXCESS (test code=MARY) 4.0 mmol/L -4-4 ABG O2 SATURATION (test code=SATA) 100 % 90-100 FIO2 (test code=FIO2A) 100 % ABG DELIVERY (test code=NATIVIDAD) Vent ABG VENT MODE (test code=MODEA) AC v con ABG VENT RESP RATE (test code=RRA) 20 /MIN ABG TIDAL VOLUME (test code=TVA) 400 ml ABG PEEP (test code=PEEPA) 10 cmH2O Performed by certified barrel rib matting machine operator at [facility] ABG TEMPERATURE (test code=TEMPA) 98.0 F ABG SITE (test code=SITEA) Art line PREDICTED AA GRADIENT (test code=AP) 172 PREDICTED PO2 (test code=OP) 492 a/A RATIO (test code=RATIO) 0.53 TCO2 ARTERIAL (test code=TCO2A) 29 A-A GRADIENT (test code=AAGRADE) 312 PROCALCITONIN (PCT)2019-02-14 21:37:00* Test Item Value Reference Range Comments PROCALCITONIN (PCT) (test code=PROCAL) 0.06 ng/mL 0.00-0.05 PROCALCITONIN (PCT) NORMAL RANGE (ADULT): <0.05 NG/ML. * a concentration <0.5 ng/mL represents a low risk of severe sepsis and/or septic shock.* a concentration >2 ng/mL represents a high risk of severe sepsis and/or septic shock.Nevertheless, concentrations <0.5 ng/mL do not exclude aninfection, on account of localized infections (withoutsystemic signs) which can be associated with such lowconcentrations, or a systemic infection in its initialstages (< 6 hours). Furthermore, increased procalcitonincan occur without infection. PCT concentrations between 0.5and 2.0 ng/mL should be interpreted taking into account thepatient's history. It is recommended to retest PCT within6-24 hours if any concentrations <2 ng/mL are obtained. LACTIC [id number] 21:26:00* Test Item Value Reference Range Comments LACTIC ACID (test code=LACT) 2.0 mmol/L 0.4-1.9 [id number] 20:09:00* Test Item Value Reference Range Comments GLUBED (test code=GLUBED) 303 MG/DL 70-110 Performed by certified barrel rib matting machine operator at [facility] HGBA1C%2019-02-14 18:07:00* Test Item Value Reference Range Comments HGBA1C% (test code=HGBA1C%) 8.9 %A1C 4.8-6.0 B-TYPE NATRIURETIC [id number] 18:05:00* Test Item Value Reference Range Comments B-TYPE NATRIURETIC PEPTIDE (test code=BNP) 256.0 PG/ML 0-100 BASIC METABOLIC [id number] 18:04:00* Test Item Value Reference Range Comments SODIUM (test code=NA) 133 mEq/L 134-147 POTASSIUM (test code=K) 3.1 mEq/L 3.4-5.0 CHLORIDE (test code=CL) 100 mEq/L 100-108 CARBON DIOXIDE (test code=CO2) 22 mEq/L 21-33 ANION GAP (test code=GAP) 14 0-20 GLUCOSE (test code=GLU) 453 mg/dL 70-110 BLOOD UREA NITROGEN (test code=BUN) 14 mg/dL 7-18 GLOMERULAR FILTRATION RATE (test code=GFR) 47.7 70-80 Units of measure=ml/min/1.73 m2 CREATININE (test code=CREAT) 1.1 mg/dL 0.6-1.3 CALCIUM (test code=CA) 8.6 mg/dL 8.0-10.5 LIPID PROFILE (CORONARY RISK)2019-02-14 18:04:00* Test Item Value Reference Range Comments TRIGLYCERIDES (test code=TRIG) 135 mg/dL 40-150 CHOLESTEROL (test code=CHOL) 126 mg/dL <200 CHOLESTEROL/HDL RATIO (test code=CHOLHDL) 3.71 RATIO 3.27-4.44 RISK ASSOCIATED WITH CHOL/HDL RATIOS: RISK MALE FEMALE1/2 AVERAGE 3.43 3.27AVERAGE 4.97 4.442X AVERAGE 9.55 7.053X AVERAGE 23.39 11.04 NOTE THAT THE REFERENCE VALUE IS RELATEDTO RISK LEVELS RECOMMENDED BY THE NATL.HEART, LUNG, AND BLOOD INST. HDL CHOLESTEROL (test code=HDL) 34.0 mg/dL 39-96 LIPOPROTEIN LDL (test code=LDL) 82 mg/dL 0-100 <100 [id number] NEAR OPTIMAL/ABOVE [id number] HIGH>PD=736 VERY HIGH*Guidelines provided by the National Cholesterol EducationProgram Adult Treatment Panel III [id number] 18:04:00* Test Item Value Reference Range Comments PHOSPHOROUS (test code=PHOS) 5.0 MG/DL 2.5-4.9 [id number] 18:04:00* Test Item Value Reference Range Comments MAGNESIUM (test code=MAG) 1.80 mg/dL 1.8-2.4 [id number] 18:04:00* Test Item Value Reference Range Comments TROPONIN-I (test code=TROPI) < 0.015 ng/mL 0.000-0.045 Negative: <=0.045 Positive: >=0.046 Correlation with serial results, other cardiac markers andclinical findings is necessary to determine the clinicalsignificance of this result. Results using different methodologies should not be comparedto one another as quantitative results may vary by method. CALCIUM [id number] 18:04:00* Test Item Value Reference Range Comments CALCIUM IONIZED (test code=HEBERT) 1.15 MMOL/L 1.12-1.32 C REACTIVE [id number] 17:48:00* Test Item Value Reference Range Comments C REACTIVE PROTEIN (test code=CRP) 14.3 MG/L 0.0-2.9 PROTHROMBIN [id number] 17:46:00* Test Item Value Reference Range Comments PROTHROMBIN TIME PATIENT (test code=PTP) 13.9 SECONDS 9.3-12.9 INTERNATIONAL NORMAL RATIO (test code=INR) 1.3 0.8-1.2 TARGET INR BY INDICATION Indication INR1. Prophylaxis of venous thrombosis 2.0 - 3.0 (orthopedic surgery), Prophylaxis of venous thrombosis (other than high-risk surgery), Treatment of Deep Vein Thrombosis/Pulmonary Embolism, Prevention of systemic embolism - Tissue heart valves, Acute Myocardial Infarction (to prevent systemic embolism), Valvular heart disease, Atrial Fibrillation, Bileaflet mechanical valve in aortic position.2. Mechanical prosthetic valves (high risk), 2.5 - 3.5 Presence of Lupus Anticoagulant or Antiphospholipid Antibodies, Prevention of systemic embolism - Acute Myocardial Infarction (to prevent recurrent infarct). COMMENTS: IF NOT ALREADY DONE WITHIN LAST 24 HOURSTHROMBOPLASTIN TIME PARTIAL 2019-02-14 17:46:00* Test Item Value Reference Range Comments THROMBOPLASTIN TIME PARTIAL (test code=PTT) 30.9 Seconds 25.0-39.5 Therapeutic Range: 50.4 - 88.3 Seconds Effective 06/14/2018 COMMENTS: IF NOT ALREADY DONE WITHIN LAST 24 HOURSCBC W/AUTO [id number] 17:39:00* Test Item Value Reference Range Comments WHITE BLOOD CELL (test code=WBC) 23.34 x10 3/uL 4.5-11.0 RED BLOOD CELL (test code=RBC) 4.61 x10 6/uL 3.54-5.02 HEMOGLOBIN (test code=HGB) 11.8 g/dL 11.0-15.0 HEMATOCRIT (test code=HCT) 37.2 % 33.0-45.0 MEAN CELL VOLUME (test code=MCV) 80.7 fL 81.0-99.0 MEAN CELL HGB (test code=MCH) 25.6 pg 27.0-33.0 MEAN CELL HGB CONCETRATION (test code=MCHC) 31.7 g/dL 33.0-37.0 RED CELL DISTRIBUTION WIDTH CV (test code=RDW) 14.9 % 11.5-14.5 RED CELL DISTRIBUTION WIDTH SD (test code=RDW-SD) 43.4 fL 37.0-54.0 PLATELET COUNT (test code=PLT) 373 x10 3/uL 150-400 MEAN PLATELET VOLUME (test code=MPV) 11.4 fL 7.0-9.0 NEUTROPHIL % (test code=NT%) 71.1 % 56.0-77.0 IMMATURE GRANULOCYTE % (test code=IG%) 0.7 % 0.0-2.0 LYMPHOCYTE % (test code=LY%) 23.4 % 14.0-32.0 MONOCYTE % (test code=MO%) 3.6 % 4.8-9.0 EOSINOPHIL % (test code=EO%) 0.9 % 0.3-3.7 BASOPHIL % (test code=BA%) 0.3 % 0.0-2.0 NUCLEATED RBC % (test code=NRBC%) 0.0 % 0-0 NEUTROPHIL # (test code=NT#) 16.60 x10 3/uL 2.0-7.6 IMMATURE GRANULOCYTE # (test code=IG#) 0.17 x10 3/uL 0.00-0.03 LYMPHOCYTE # (test code=LY#) 5.46 x10 3/uL 1.0-3.8 MONOCYTE # (test code=MO#) 0.84 x10 3/uL 0.1-0.8 EOSINOPHIL # (test code=EO#) 0.20 x10 3/uL 0.0-0.2 BASOPHIL # (test code=BA#) 0.07 x10 3/uL 0.0-0.2 NUCLEATED RBC # (test code=NRBC#) 0.00 x10 3/uL 0.0-0.1 MANUAL DIFF REQUIRED (test code=MDIFF) NO COMMENTS: IF NOT ALREADY DONE WITHIN LAST 24 HOURSBASIC METABOLIC PANEL 2019-02-14 17:38:00* Test Item Value Reference Range Comments SODIUM (test code=NA) mEq/L 134-147 POTASSIUM (test code=K) mEq/L 3.4-5.0 CHLORIDE (test code=CL) mEq/L 100-108 CARBON DIOXIDE (test code=CO2) mEq/L 21-33 ANION GAP (test code=GAP) 0-20 GLUCOSE (test code=GLU) mg/dL 70-110 BLOOD UREA NITROGEN (test code=BUN) mg/dL 7-18 GLOMERULAR FILTRATION RATE (test code=GFR) 70-80 CREATININE (test code=CREAT) mg/dL 0.6-1.3 CALCIUM (test code=CA) mg/dL 8.0-10.5 LIPID PROFILE (CORONARY RISK)2019-02-14 17:38:00* Test Item Value Reference Range Comments TRIGLYCERIDES (test code=TRIG) mg/dL 40-150 CHOLESTEROL (test code=CHOL) mg/dL <200 CHOLESTEROL/HDL RATIO (test code=CHOLHDL) RATIO 3.27-4.44 HDL CHOLESTEROL (test code=HDL) mg/dL 39-96 LIPOPROTEIN LDL (test code=LDL) mg/dL 0-100 [id number] 17:38:00* Test Item Value Reference Range Comments PHOSPHOROUS (test code=PHOS) MG/DL 2.5-4.9 [id number] 17:38:00* Test Item Value Reference Range Comments MAGNESIUM (test code=MAG) mg/dL 1.8-2.4 [id number] 17:38:00* Test Item Value Reference Range Comments TROPONIN-I (test code=TROPI) ng/mL 0.000-0.045 CALCIUM [id number] 17:38:00* Test Item Value Reference Range Comments CALCIUM IONIZED (test code=HEBERT) 1.15 MMOL/L 1.12-1.32 ARTERIAL BLOOD [id number] 16:55:00* Test Item Value Reference Range Comments ARTERIAL BLOOD GAS PH (test code=PHA) 7.250 7.35-7.45 ARTERIAL BLOOD GAS PCO2 (test code=PCO2A) 53.1 mmHg 35-45 ARTERIAL BLOOD GAS PO2 (test code=PO2A) 168 mmHg 80-100 BICARBONATE TOTAL HCO3 (test code=HCO3) 23.3 mmol/L 22.0-26.0 BASE EXCESS (test code=MARY) -4.0 mmol/L -4-4 ABG O2 SATURATION (test code=SATA) 99 % 90-100 FIO2 (test code=FIO2A) 100 % ABG DELIVERY (test code=NATIVIDAD) Vent ABG VENT MODE (test code=MODEA) AC v con ABG VENT RESP RATE (test code=RRA) 15 /MIN ABG TIDAL VOLUME (test code=TVA) 40 ml ABG PEEP (test code=PEEPA) 10 cmH2O Performed by certified barrel rib matting machine operator at [facility] ABG TEMPERATURE (test code=TEMPA) 98.0 F ABG SITE (test code=SITEA) Art line PREDICTED AA GRADIENT (test code=AP) 168 PREDICTED PO2 (test code=OP) 481 a/A RATIO (test code=RATIO) 0.26 TCO2 ARTERIAL (test code=TCO2A) 25 A-A GRADIENT (test code=AAGRADE) 481 CREATINE KINASE (CK)2019-02-14 16:31:00* Test Item Value Reference Range Comments CREATINE KINASE (CK) (test code=CK) 23 35-232 Result is in INTERNATIONAL UNITS/LITER [id number] 16:31:00* Test Item Value Reference Range Comments TROPONIN-I (test code=TROPI) < 0.015 ng/mL 0.000-0.045 Negative: <=0.045 Positive: >=0.046 Correlation with serial results, other cardiac markers andclinical findings is necessary to determine the clinicalsignificance of this result. Results using different methodologies should not be comparedto one another as quantitative results may vary by method. - XR CHEST 1 [id number] 16:18:00 FAX: Hieu Poole MD [place]: St: ADM FAX: Ai Berger MD [phone] FAX: Irma Smith [phone] Name: SUMMER RUBI [facility] : 1935 Age/S: 83/F [address] [place] [address] Unit #: [id number] Loc: G.24 [place] [address] Phys: Hieu Poole MD Acct: [id number] Dis Date: Status: ADM IN ONE #: [phone] Exam Date: 02/14/2019 1615 FAX #: [phone] Reason: Post intubation EXAMS: CPT CODE: [id number] XR CHEST 1 V 54820 Clinical Indic ation: Atrial fibrillation, post intubation. Comparison: 02/14/2019 1327 h ours. Impression: Chest, single view 1603 hours. Interval endot bev intubation with tube 5 cm above the minal. Cardiomegaly with r ight greater than left airspace opacities representing edema or infiltra te. Small bilateral pleural effusions. SL: [id number] at 1618 Reported and signed by: Chen Del Rosario M.D. CC: Collin Poole MD; Ai Ryan; Irma Davis MD Technologist: Dion jacob, RT(R) Trnscrd Date/Time/By: 02/14/2019 (16 ) : By: [email or web address] Orig Print D/T: S: 02/14/2019 (2706) PAGE 1 Signed Report ARTERIAL BLOOD [id number] 16:10:00* Test Item Value Reference Range Comments ARTERIAL BLOOD GAS PH (test code=PHA) 7.302 7.35-7.45 ARTERIAL BLOOD GAS PCO2 (test code=PCO2A) 52.2 mmHg 35-45 ARTERIAL BLOOD GAS PO2 (test code=PO2A) 89 mmHg 80-100 BICARBONATE TOTAL HCO3 (test code=HCO3) 25.8 mmol/L 22.0-26.0 BASE EXCESS (test code=MARY) -1.0 mmol/L -4-4 ABG O2 SATURATION (test code=SATA) 96 % 90-100 FIO2 (test code=FIO2A) 100 % ABG DELIVERY (test code=NATIVIDAD) Vent ABG VENT MODE (test code=MODEA) AC v con ABG VENT RESP RATE (test code=RRA) 15 /MIN ABG TIDAL VOLUME (test code=TVA) 400 ml ABG PEEP (test code=PEEPA) 5 cmH2O Performed by certified barrel rib matting machine operator at [facility] ABG TEMPERATURE (test code=TEMPA) 98.6 F ABG SITE (test code=SITEA) Art line PREDICTED AA GRADIENT (test code=AP) 169 PREDICTED PO2 (test code=OP) 481 a/A RATIO (test code=RATIO) 0.14 TCO2 ARTERIAL (test code=TCO2A) 27 A-A GRADIENT (test code=AAGRADE) 561 THROMBOPLASTIN TIME [id number] 15:42:00* Test Item Value Reference Range Comments THROMBOPLASTIN TIME PARTIAL (test code=PTT) 30.9 Seconds 25.0-39.5 Therapeutic Range: 50.4 - 88.3 Seconds Effective 06/14/2018 [id number] 15:42:00* Test Item Value Reference Range Comments D-DIMER (test code=DDIMER) 945 ng/mlFEU <=500 THROMBOSIS AND/OR PULMONARY EMBOLISM AND THE CLINICAL CUT- OFF VALUE FOR EXCLUSION (500 ng/mL FEU) OF THESE CONDITIONSIS VALIDATED BY THE TECHNICAL CONSULTANT OF THE METHOD. A NEGATIVE D-DIMER RESULT WHEN COMBINED WITH A CLINICALASSESSMENT OF LOW PRETEST PROBABILITY HAS BEEN SHOWN TO HAVEA HIGH NEGATIVE PREDICTIVE VALUE OF DVT OR PE. D-DIMER VALUES >500 ng/mL FEU ARE NOT DIAGNOSTIC FOR DVT, PEor DIC WITHOUT OTHER CONFIRMATORY TESTS AND APPROPRIATECLINICAL EUALUATIONS. COMPREHENSIVE METABOLIC [id number] 15:39:00* Test Item Value Reference Range Comments SODIUM (test code=NA) 134 mEq/L 134-147 POTASSIUM (test code=K) 3.6 mEq/L 3.4-5.0 CHLORIDE (test code=CL) 100 mEq/L 100-108 CARBON DIOXIDE (test code=CO2) 26 mEq/L 21-33 ANION GAP (test code=GAP) 12 0-20 GLUCOSE (test code=GLU) 215 mg/dL 70-110 BLOOD UREA NITROGEN (test code=BUN) 10 mg/dL 7-18 GLOMERULAR FILTRATION RATE (test code=GFR) 60.1 70-80 Units of measure=ml/min/1.73 m2 CREATININE (test code=CREAT) 0.9 mg/dL 0.6-1.3 TOTAL PROTEIN (test code=PROT) 6.7 g/dL 6.4-8.2 ALBUMIN (test code=ALB) 3.20 g/dL 3.4-5.0 CALCIUM (test code=CA) 8.8 mg/dL 8.0-10.5 BILIRUBIN TOTAL (test code=BILT) 0.2 MG/DL <1.5 SGOT/AST (test code=AST) 11 IUnit/L 15-37 SGPT/ALT (test code=ALT) 40 IUnit/L 15-65 ALKALINE PHOSPHATASE TOTAL (test code=ALKP) 82 IUnit/L 20-125 [id number] 15:39:00* Test Item Value Reference Range Comments PHOSPHOROUS (test code=PHOS) 3.4 MG/DL 2.5-4.9 [id number] 15:39:00* Test Item Value Reference Range Comments MAGNESIUM (test code=MAG) 1.70 mg/dL 1.8-2.4 CBC W/AUTO [id number] 15:24:00* Test Item Value Reference Range Comments WHITE BLOOD CELL (test code=WBC) 7.83 x10 3/uL 4.5-11.0 RED BLOOD CELL (test code=RBC) 4.33 x10 6/uL 3.54-5.02 HEMOGLOBIN (test code=HGB) 11.2 g/dL 11.0-15.0 HEMATOCRIT (test code=HCT) 34.6 % 33.0-45.0 MEAN CELL VOLUME (test code=MCV) 79.9 fL 81.0-99.0 MEAN CELL HGB (test code=MCH) 25.9 pg 27.0-33.0 MEAN CELL HGB CONCETRATION (test code=MCHC) 32.4 g/dL 33.0-37.0 RED CELL DISTRIBUTION WIDTH CV (test code=RDW) 14.9 % 11.5-14.5 RED CELL DISTRIBUTION WIDTH SD (test code=RDW-SD) 43.6 fL 37.0-54.0 PLATELET COUNT (test code=PLT) 231 x10 3/uL 150-400 MEAN PLATELET VOLUME (test code=MPV) 10.6 fL 7.0-9.0 NEUTROPHIL % (test code=NT%) 64.8 % 56.0-77.0 IMMATURE GRANULOCYTE % (test code=IG%) 0.3 % 0.0-2.0 LYMPHOCYTE % (test code=LY%) 26.2 % 14.0-32.0 MONOCYTE % (test code=MO%) 6.4 % 4.8-9.0 EOSINOPHIL % (test code=EO%) 2.0 % 0.3-3.7 BASOPHIL % (test code=BA%) 0.3 % 0.0-2.0 NUCLEATED RBC % (test code=NRBC%) 0.0 % 0-0 NEUTROPHIL # (test code=NT#) 5.08 x10 3/uL 2.0-7.6 IMMATURE GRANULOCYTE # (test code=IG#) 0.02 x10 3/uL 0.00-0.03 LYMPHOCYTE # (test code=LY#) 2.05 x10 3/uL 1.0-3.8 MONOCYTE # (test code=MO#) 0.50 x10 3/uL 0.1-0.8 EOSINOPHIL # (test code=EO#) 0.16 x10 3/uL 0.0-0.2 BASOPHIL # (test code=BA#) 0.02 x10 3/uL 0.0-0.2 NUCLEATED RBC # (test code=NRBC#) 0.00 x10 3/uL 0.0-0.1 MANUAL DIFF REQUIRED (test code=MDIFF) NO - XR CHEST 1 [id number] 13:49:00 FAX: Ai Berger MD [phone] [place]: St: ADM FAX: Irma Smith [phone] Name: SUMMER RUBI [facility] : 1935 Age/S: 83/F [address] [place] [address] Unit #: [id number] Loc: [address] [address] Phys: Ai Branch MD Acct: [id number] Dis Date: Status: ADM IN PHONE #: [phone] Exam Date: 02/14/2019 1338 FAX #: [phone] Reason: SOB EXAMS: CPT CODE: [id number] XR CHEST 1 V 50775 Study: - XR CHEST 1 V 02/14/2019 1:12 PM Patient Name: SUMMER RUBI MR: [id number] : 1935; Age: 83 years y/o Female Ordering Physician: Ai Branch MD Clinical Indication: SOB Comparison: February 13, 2019 x-ray FINDINGS LUNGS: Small right pleural effusion. HEART AND MEDIASTINUM: Mild interstitial opacities bilaterally, improved since prior exam. LINES: None. OSSEOUS STRUCTURES: Mild spinal degenerative change without fracture, dislocation, or focal osseous lesion. OTHER: None. IMPRESSION: Small right pleural effusion and mild pulmonary edema, improved since prior exam. SL: [id number] at 1349 Reported and signed by: Jarod Gruber M.D. CC: Ai Ryan; Irma Davis MD Technologist: RT Huy(Edin) Penny Date/Time/By: 02/14/2019 (5705) : By: [email or web address] Orig Print D/T: S: 02/14/2019 (4820) PAGE 1 Signed Report [id number] 13:22:00* Test Item Value Reference Range Comments GLUBED (test code=GLUBED) 203 MG/DL 70-110 Performed by certified barrel rib matting machine operator at [facility] [id number] 11:49:00* Test Item Value Reference Range Comments GLUBED (test code=GLUBED) 242 MG/DL 70-110 Performed by certified barrel rib matting machine operator at [facility] - XR CHEST 1 [id number] 07:49:00 FAX: Ai Berger MD [phone] [place]: St: ADM FAX: Irma Smith [phone] Name: SUMMER RUBI [facility] : 1935 Age/S: 83/F [address] [place] [address] Unit #: [id number] Loc: [address] [address] Phys: Ai Branch MD Acct: [id number] Dis Date: Status: ADM IN PHONE #: [phone] Exam Date: 02/13/20192147 FAX #: [phone] Reason: PLEURAL EFFUSION EXAMS: CPT CODE: [id number] XR CHEST 1 V 72229 Study: - XR CHEST 1 V 02/13/2019 9:22 PM Patient Name: SUMMER RUBI MR: [id number] : 1935; Age: 83 years y/o Female Ordering Physician: Ai Branch MD Clinical Indication: PLEURAL EFFUSION Comparison: February 13, 2019 x-ray FINDINGS LUNGS: Small to moderate bilateral pleural effusions. Bilateral interstitial opacities. HEART AND MEDIASTINUM: Normal size heart. LINES: None. OSSEOUS STRUCTURES: Mild spinal degenerative change without fracture, dislocation, or focal o sseous lesion. OTHER: None. IMPRESSION: Mild to moderate pulmonary edema and small to moderate bilateral pleural effusions. SL: [id number] at 0749 Reported and signed by: Jarod Gruber M.D. CC: Ai Ryan; Irma Davis MD Technologist: RT Twan(Edin) Trnscrd Date/Time/By: 02/14/2019 (0749) : By: [email or web address] Orig Print D/T: S: 02/14/2019 (0752) PAGE 1 Signed Report [id number] 05:49:00* Test Item Value Reference Range Comments GLUBED (test code=GLUBED) 254 MG/DL 70-110 Performed by certified barrel rib matting machine operator at [facility] - CTA CHEST FOR [id number] 11:34:00 Name: SUMMER RUBI [facility] : 1935 Age/S: 83 / F [address] [place] [address] Unit #: [id number] Loc: [place] [address] Phys: Boris Dye MD Acct: [id number] Dis Date: Status: REG ER PHONE #: [phone] Exam Date: 02/13/2019 1100 FAX #: [phone] Reason: SOB, tachy, LLE swelling, 10 hr flight 1 wk ago EXAMS: CPT CODE: [id number] [place] [address] Clinical Indication: Shortness of breath, left lower extremity swelling. Comparison: None TECHNIQUE: Contiguous axial CT angiographic images of the chest were acquired following administration of 100 mL Isovue-300 IV contrast. Coronal and sagittal reconstructions were created. 3D MIP reformatted images were created. CT imaging performed at this location utilizes radiation dose optimization techniques which include one or more of the following: -Automated exposure control -Adjustment of the mA and/or kV according to patient size -Use of iterative reconstruction technique CT Radiation Dose DLP 192.6 mGy-cm FINDINGS: No pu lmonary artery filling defect main pulmonary artery is normal caliber. Mediastinal and hilar lymphadenopathy. AP window lymph node measures up to 2.1 cm short axis. Left hilar lymph node measures 14 mm short axis. Moderate right and small left pleural effusions. Bibasilar atelectasis. Right lung calcified granuloma. Partially imaged upper abdomen shows a small hiatal hernia. Heterogeneous and enlarged thyroid goiter. Degenerative changes of the spine. IMPRESSION: 1. No acute pulmonary embolism. 2. Mediastinal and left hilar lymphadenopathy of unknown etiology. 3. Moderate right and small left pleural effusions. 4. Heterogeneous and enlarged thyroid. SL: [id number] PAGE 1 Signed Report (CONTINUED) Name: SUMMER RUBI [facility] : 1935 Age/S: 83 / F [address] [place] [address] Unit #: [id number] Loc: [place] [address] Phys: Boris Dye MD Acct: [id number] Dis Date: Status: R EG ER PHONE #: [phone] Exam Date: 01/29 1100 FAX #: [phone] Reason: SOB, tachy, LL E swelling, 10 hr flight 1 wk ago EXAMS: CPT CODE: [id number] CTA CHEST FOR PE 7 1275 <Continued> at 1134 Reported and signed by: Chen Del Rosario M.D. CC: Boris Dye MD; Irma Davis MD Technologist:Yola Del Rio RT(R)(CT) CTDI: DLP: Trnscb Date/Time: 02/13/2019 (1134) [email or web address] Orig Print D/T: S: 02/13/2019 (5065) PAGE 2 Signed Report - [facility]/[id number] 10:55:00 Name: SUMMER RUBI [facility] : 1935 Age/S: 83 / F [address] [place] [address] Unit #: [id number] Loc: [place] [address] Phys: Boris Dye MD Acct: [id number] Dis Date: Status: REG ER PHONE #: [phone] Exam Date: 02/13/2019 105 FAX #: [phone] Reason: LLE swelling 1 wk after 10hr flight EXAMS: CPT CODE: [id number] DUP VEIN UNI/LTD 56503 EXAM: US LEFT LOWER EXTREMITY VENOUS DOPPLER DATE: 02/13/2019 9:38 AM : 1935; Age: 83 years y/o Female INDICATION: Shortness of breath LLE swelling 1 wk after 10hr flight ADDITIONAL INFORMATION: None. COMPARISON: None. TECHNIQUE: Multiplanar grayscale, color Doppler and spectral Doppler ultrasound of the left lower extremity veins. FINDINGS: Left lower extremity: The common femoral vein, femoral vein, popliteal vein and visualized posterior tibial/calf veins are patent. There is no echogenic debris to suggest deep venous thrombosis. Limited visualization of calf posterior tibial vein. IMPRESSION: No deep venous thrombosis (DVT). Limited visualization of calf posterior tibial vein. SL: [id number] at 1055 Reported and signed by: Bronson Resendiz D.O. CC: Boris Dye MD; Irma Davis MD Technologist: Lisa Solis RDMS(Michele)(BR) Trnscb Date/Time: 02/13/2019 (2315) [email or web address] Orig Print D/T: S: 02/13/2019 (5944) Probe: PAGE 1 Signed Report B-TYPE NATRIURETIC PEPTIDE 2019-02-13 10:25:00* Test Item Value Reference Range Comments B-TYPE NATRIURETIC PEPTIDE (test code=BNP) 588.2 PG/ML 0-100 BASIC METABOLIC [id number] 10:15:00* Test Item Value Reference Range Comments SODIUM (test code=NA) 139 mEq/L 134-147 POTASSIUM (test code=K) 4.2 mEq/L 3.4-5.0 CHLORIDE (test code=CL) 107 mEq/L 100-108 CARBON DIOXIDE (test code=CO2) 26 mEq/L 21-33 ANION GAP (test code=GAP) 10 0-20 GLUCOSE (test code=GLU) 224 mg/dL 70-110 BLOOD UREA NITROGEN (test code=BUN) 14 mg/dL 7-18 GLOMERULAR FILTRATION RATE (test code=GFR) 68.8 70-80 Units of measure=ml/min/1.73 m2 CREATININE (test code=CREAT) 0.8 mg/dL 0.6-1.3 CALCIUM (test code=CA) 9.3 mg/dL 8.0-10.5 BASIC METABOLIC [id number] 10:13:00* Test Item Value Reference Range Comments SODIUM (test code=NA) 139 mEq/L 134-147 POTASSIUM (test code=K) 4.2 mEq/L 3.4-5.0 CHLORIDE (test code=CL) 107 mEq/L 100-108 CARBON DIOXIDE (test code=CO2) 26 mEq/L 21-33 ANION GAP (test code=GAP) 10 0-20 GLUCOSE (test code=GLU) 224 mg/dL 70-110 BLOOD UREA NITROGEN (test code=BUN) 14 mg/dL 7-18 GLOMERULAR FILTRATION RATE (test code=GFR) 70-80 CREATININE (test code=CREAT) mg/dL 0.6-1.3 CALCIUM (test code=CA) 9.3 mg/dL 8.0-10.5 CBC W/AUTO [id number] 09:54:00* Test Item Value Reference Range Comments WHITE BLOOD CELL (test code=WBC) 7.90 x10 3/uL 4.5-11.0 RED BLOOD CELL (test code=RBC) 4.45 x10 6/uL 3.54-5.02 HEMOGLOBIN (test code=HGB) 11.4 g/dL 11.0-15.0 HEMATOCRIT (test code=HCT) 36.4 % 33.0-45.0 MEAN CELL VOLUME (test code=MCV) 81.8 fL 81.0-99.0 MEAN CELL HGB (test code=MCH) 25.6 pg 27.0-33.0 MEAN CELL HGB CONCETRATION (test code=MCHC) 31.3 g/dL 33.0-37.0 RED CELL DISTRIBUTION WIDTH CV (test code=RDW) 14.9 % 11.5-14.5 RED CELL DISTRIBUTION WIDTH SD (test code=RDW-SD) 43.7 fL 37.0-54.0 PLATELET COUNT (test code=PLT) 241 x10 3/uL 150-400 MEAN PLATELET VOLUME (test code=MPV) 10.8 fL 7.0-9.0 NEUTROPHIL % (test code=NT%) 66.1 % 56.0-77.0 IMMATURE GRANULOCYTE % (test code=IG%) 0.4 % 0.0-2.0 LYMPHOCYTE % (test code=LY%) 25.9 % 14.0-32.0 MONOCYTE % (test code=MO%) 5.8 % 4.8-9.0 EOSINOPHIL % (test code=EO%) 1.5 % 0.3-3.7 BASOPHIL % (test code=BA%) 0.3 % 0.0-2.0 NUCLEATED RBC % (test code=NRBC%) 0.0 % 0-0 NEUTROPHIL # (test code=NT#) 5.22 x10 3/uL 2.0-7.6 IMMATURE GRANULOCYTE # (test code=IG#) 0.03 x10 3/uL 0.00-0.03 LYMPHOCYTE # (test code=LY#) 2.05 x10 3/uL 1.0-3.8 MONOCYTE # (test code=MO#) 0.46 x10 3/uL 0.1-0.8 EOSINOPHIL # (test code=EO#) 0.12 x10 3/uL 0.0-0.2 BASOPHIL # (test code=BA#) 0.02 x10 3/uL 0.0-0.2 NUCLEATED RBC # (test code=NRBC#) 0.00 x10 3/uL 0.0-0.1 MANUAL DIFF REQUIRED (test code=MDIFF) NO TROPONIN-I [id number] 09:49:00* Test Item Value Reference Range Comments TROPONIN-I RAPID (test code=TROPIRAP) 0.02 ng/mL 0.00-0.08 Performed by certified barrel rib matting machine operator at [facility] Negative: <=0.08 Positive: >=0.09An elevated troponin value alone is not sufficient todiagnose a myocardial infarction. Rather, the patient sclinical presentation (history, physical exam) and ECGshould be used in conjunction with troponin in thediagnostic evaluation of suspected myocardial infarction. Aserial sampling protocol is recommended to facilitate the identification of temporal changes in troponin levels characteristic of [place]. SHOULDER LEFT [id number] 18:38:00 [place] [address] Patient Name: SUMMER RUBI MR #: [id number] : 1935 Age/Sex: 82/F Req #: [id number] Adm Physician: Ordered by: CARRILLO NEGRETE MD Report #: [id number] Location: ER Room/Bed: Procedure: [id number] DX /SHOULDER LEFT COMPLETE Exam Date: 02/02/18 Exam Carlos Manuel e: [id number] REPORT STATUS: Signed SH OULDER LEFT COMPLETE - 3 views HISTORY: Pain. COMPARISON: None avail able. FINDINGS: Bones: No acute displaced fracture. Osseous al ignment is within normal limits. Joints: Mild DJD of the glenohumeral yariel nt. Soft tissues: The soft tissues appear unremarkable. IMPRESSIO N: Mild DJD of the glenohumeral joint. Signed by: Dr. Lexa samuels M.D. on 02/02/2018 6:39 PM Dictated By: JIMMY Harkins [facility] Signed By: JIMMY BOSE MD, MD on 02/02/181838 Transcribed By: DANO on 02/02/181838 COPY TO: CARRILLO NEGRETE MD
[2019-06-07] MEDS ORDERED: ONDANSETRON HCL INJ 2MG/ML 2ML 2 MG/ML VIAL IV STA (22:16)
[2019-06-07] MEDS ORDERED: DILTIAZEM HCL 5 MG/ML 5 ML VIAL IV STA (22:22)
[2019-06-07] MEDS ORDERED: SODIUM CHLORIDE 0.9% 1000ML 1,000 ML ONE (22:33)
--- NOTE | 2019-06-07 23:13 | NUR ---
ATTEMPT MADE TO ADMIT PT TO [facility] BUT WILL NOT ADMIT UNLESS WE HAVE A HOSPITALIST AND SPECIALIST WILLING TO ADMIT, CONTACTED DR. VALENTIN CARROLL (PER FAMILY REQ AND FAMILY STATES THAT'S PTS MEDICAL ASSISTANT OB GYN), DR. CARROLL SW DR. FERNANDEZ AND HE STATES NOT ABLE TO ADMIT PT AT [facility], DR. CARROLL SPOKE WITH PTS DAUGHTER AND EXPLAINED SITUATION OF NEED FOR TREATMENT ELSE WHERE AND TO FOLLOW UP WITH HIM AT OFFICE UPON DISCHARGE FROM HOSPITAL. DR. FERNANDEZ TO SW DAUGHTER TO SEE IF STILL OK WITH ADMISSION TO [facility]?
--- NOTE | 2019-06-07 23:39 | Diagnostic Imaging Report ---
EXAMINATION: CXR 1 [facility] INDICATION: Nausea, vomiting, weakness. COMPARISON: Chest radiograph 07/19/2011. FINDINGS: TUBES and LINES: None. LUNGS: Hyperinflated lungs. Patchy opacities at the lung bases. No evidence of lobar pneumonia or pulmonary edema. Mild interstitial opacities may represent age related interstitial changes. Focal opacity in the right upper lung obscured by overlying EKG lead. PLEURA: No pleural effusion or pneumothorax. HEART AND MEDIASTINUM: The cardiomediastinal silhouette is unremarkable. There are atherosclerotic calcifications within the aorta. BONES AND SOFT TISSUES: No acute osseous lesion. Soft tissues are unremarkable. UPPER ABDOMEN: No free air under the diaphragm. IMPRESSION: Hyperinflated lungs with bibasilar opacities which may represent atelectasis or infection in the appropriate clinical setting. Suggest follow-up chest radiograph in 6-8 weeks to assess for resolution. Focal opacity in the right upper lung obscured by overlying EKG lead. This may represent pulmonary nodule. Suggest repeat radiograph upon removal of lead for further evaluation. Signed by: Dr. Rito Philip MD on 06/07/2019 11:36 PM
[2019-06-07] MEDS ORDERED: FUROSEMIDE INJ 10 MG/ML 4 ML VIAL ONE (23:43)
[2019-06-07] MEDS ORDERED: FUROSEMIDE INJ 10 MG/ML 2 ML VIAL IV ONE (23:45)
[2019-06-07] MEDS ORDERED: DILTIAZEM HCL 5 MG/ML 5 ML VIAL IV PRN (23:45)
[2019-06-07] MEDS ORDERED: ONDANSETRON HCL INJ 2MG/ML 2ML 2 MG/ML VIAL IV PRN (23:45)
== END 2019-06-08 00:15 | disposition left against medical advice (07) | DRG 313 ==
LOC: FSED 21:52 → ERHOLD 23:44 → UNDOADMIN 23:44 → UNDODISIN 06-08 02:00
DX: R07.9 Chest pain, unspecified (principal)
CPT/HCPCS: 71045; 80053; 80076; 81003; 82553; 84484; 85025; 93005; 99284; J1940; J2405; J7030